=== PATIENT | male | born 1965 | race Caucasian/White ===

== ENCOUNTER 2020-10-14 05:23 | Emergency (ER) | payer OTHER ==
[~2020-10-14] VITALS: Ht 170.2 cm; Wt 56.7 kg
[~2020-10-14 05:23] MED LIST: PRINIVIL10 MG PO; VICODIN 5-5001 EACH
[2020-10-14] MEDS ORDERED: OLANZAPINE2.5 MG PO (05:51)
[2020-10-14] MEDS ORDERED: BACLOFEN 10MG T10 MG PO (05:51)
[2020-10-14 08:21] VITALS: BP 145/97
== END 2020-10-14 08:21 | disposition home or self-care (01) ==
LOC: ER 05:23
DX: T83.010A Breakdown (mechanical) of cystostomy catheter, initial encounter (principal); Y84.8 Other medical procedures as the cause of abnormal reaction of the patient, or of later complication, without mention of misadventure at the time of the procedure; Y92.89 Other specified places as the place of occurrence of the external cause; Z88.1 Allergy status to other antibiotic agents

== ENCOUNTER → 2020-10-20 | Outpatient (CLI) | payer OTHER ==
[~2020-10-20] VITALS: Ht 170.2 cm; Wt 56.7 kg
[~2020-10-20] MED LIST changes: +ALLEGRA ALLERGY60 MG PO; +BACLOFEN 10MG T10 MG PO; +NASONEX17 GM NASAL; +OLANZAPINE2.5 MG PO; +OMEPRAZOLE 20 M20 M1 PO; +ZESTRIL10 MG PO
[2020-10-20 11:59] VITALS: BP 154/94
[2020-10-20 12:32] LABS: HEMATOCRIT 42.2 % (42.0-52.0); HEMOGLOBIN 13.9 gm/dL (14.0-18.0); MCH 29.1 pg (26.0-34.0); MCHC 32.8 g/dL (28.0-37.0); MCV 88.5 fL (80.0-100.0); RBC 4.77 mil/uL (4.50-6.00); RDW 14.8 % (10.5-14.5)
[2020-10-20 12:42] LABS: CREATININE 0.6 mg/dL (0.7-1.3); POTASSIUM 3.9 mmol/L (3.5-5.1)
[2020-10-20 12:44] LABS: INR 0.99; PROTIME 10.8 Seconds (10.5-12.1)
== END | disposition home or self-care (01) ==
LOC: SPEC 11:04
PROVIDERS: ATTEND Radiology Diagnostic Radiology
DX: T83.010A Breakdown (mechanical) of cystostomy catheter, initial encounter (principal); N31.9 Neuromuscular dysfunction of bladder, unspecified; N21.0 Calculus in bladder; I10 Essential (primary) hypertension; Z98.890 Other specified postprocedural states; Z79.899 Other long term (current) drug therapy; Z88.0 Allergy status to penicillin; Y83.8 Other surgical procedures as the cause of abnormal reaction of the patient, or of later complication, without mention of misadventure at the time of the procedure